=== PATIENT | female | born 1975 | race Hispanic/Latino ===

== ENCOUNTER 2018-04-03 09:47 | Day surgery (SDC) | payer OTHER ==
[~2018-04-03 09:47] MED LIST: DECADRON ONE; DILAUDID IV PRN; DILAUDID ONE; DIPRIVAN 10 MG/ML IV ONE; LACTATED RINGERS 1,000 ML IV SCH; VERSED IV NR; XYLOCAINE MPF 2% ONE; ZOFRAN IV PRN; ZOFRAN ONE
[2018-04-03] MEDS ORDERED: NACL BACTERIOSTATIC INFILTRATI ONE (10:34)
--- NOTE | 2018-04-03 11:13 | Anesthesia Day of Surgery ---
Anesthesia Day of Surgery - Day of Surgery Patient Examined: Yes Patient H&P Reviewed: Yes Patient is NPO: Yes
--- NOTE | 2018-04-03 11:15 | Anesthesia Consultation ---
Anesthesia Consult and Med Hx Date of service: 04/03/18 - Airway Anesthetic Teeth Evaluation: Good ROM Head & Neck: Adequate Mental/Hyoid Distance: Adequate Mallampati Class: Class I Intubation Access Assessment: Good - Pulmonary Exam CTA: Yes - Cardiac Exam Cardiac Exam: No Murmur - Pre-Operative Health Status ASA Pre-Surgery Classification: ASA2 Proposed Anesthetic Plan: General - Pulmonary Hx Asthma: Yes (Used maintenance inhaler today; no recent rescue inhaler use) Hx Respiratory Symptoms: No SOB: No COPD: No Home Oxygen Therapy: No Hx Pneumonia: No Hx Sleep Apnea: No - Cardiovascular System Hx Hypertension: No Hx Coronary Artery Disease: No Hx Heart Attack/AMI: No Hx Angina: No Hx Percutaneous Transluminal Coronary Angioplasty (PTCA): No Hx Cardia Arrhythmia: No Hx Pacemaker: No Hx Internal Defibrillator: No Hx Valvular Heart Disease: No Hx Heart Murmur: No Hx Peripheral Vascular Disease: No - Central Nervous System Hx Neuromuscular Disorder: No Hx Seizures: No CVA: No Hx Back Pain: No Hx Psychiatric Problems: No - Gastrointestinal Hx Ulcer: No Hx Gastroesophageal Reflux Disease: No - Endocrine Hx Renal Disease: No Hx Liver Disease: No Hx Insulin Dependent Diabetes: No Hx Non-Insulin Dependent Diabetes: No Hx Thyroid Disease: No - Other Systems Hx Alcohol Use: Yes (occas) Hx Cancer: No - Additional Comments Anesthesia Medical History Comments: PMH well controlled asthma
[2018-04-03] MEDS ORDERED: SILVER NITRATE TP ONE (11:29)
[2018-04-03] MEDS ORDERED: MONSEL'S TP ONE ×2 (11:29→12:29)
[2018-04-03] MEDS ORDERED: LUGOL'S SOLUTION 5% TP ONE (11:29)
[2018-04-03] MEDS ORDERED: ACETIC ACID 3% SOLN TP ONE (12:29)
[2018-04-03] MEDS ORDERED: NACL 0.9% IR ONE (12:29)
[2018-04-03 15:39] VITALS: BP 101/73
--- NOTE | 2018-04-04 09:48 | Operative Report ---
Operative Report Operative Report: Preoperative diagnosis: Persistent mild cervical dysplasia. Postoperative diagnosis: Same as preoperative diagnosis. Procedure: LEEP of the cervix. Surgeon: Dr. [place] Laborer Livestock: none Anesthesia: IV sedation. IVF: RL 1 liter. Procedure details: The risks, benefits, and alternatives of the procedure were discussed in detail with the patient which included but limited to the risk of infection, bleeding, shortened cervix which can lead to cervical incompetence and the need for cerclage in future pregnancies. The patient expressed understanding, her questions were answered, and she gave informed consent. The patient was taken to the operating room with an IV fluid using Ringer's lactated. In the operating room, she was placed in the dorsal supine position and given IV sedation with MAC. Then, she was placed in the stirrups in a dorsal lithotomy position. The perineum, vagina , and cervix were washed and she was prepared and draped in usual sterile fashion. A weighted speculum was placed on the posterior vaginal wall. Lugol's solution was applied to the cervix. The dysplastic areas where visible. The loop was used to perform the procedure where the lesion was resected including a 1-2 mm margin. The base of the cervix was cauterized using the Bovie. Good hemostasis was obtained. Monsel solution was applied. The counts of laps, needles, sponges, and instruments were correct 2. The patient tolerated the procedure well. She was awakened from the anesthesia and taken to the recovery room in stable condition.
== END 2018-04-03 14:10 | disposition home or self-care (01) ==
LOC: OR 09:47
PROVIDERS: ATTEND Obstetrics & Gynecology
DX: N72 Inflammatory disease of cervix uteri (principal); N87.0 Mild cervical dysplasia; J45.909 Unspecified asthma, uncomplicated; Z79.899 Other long term (current) drug therapy; Z72.89 Other problems related to lifestyle; Z98.890 Other specified postprocedural states
CPT/HCPCS: 57522; 81025; 88307; J1100; J1170; J2250; J2405; J2704; J7120; 88305